=== PATIENT | female | born 1985 | race Caucasian/White ===

== ENCOUNTER 2016-08-05 19:06 | Emergency (ER) | payer OTHER ==
[~2016-08-05] VITALS: Ht 157.5 cm; Wt 128.0 kg
[~2016-08-05 19:06] MED LIST: ALPR0.5T PO; CITA40TA12 PO; FAMO-63 PO; KETO10TA PO; LAMO25TA5 PO; MAG355OR12 PO; METO50TA10 PO; ONDA4TAB10 PO; SUMA100T3 PO
[2016-08-05 19:28] VITALS: BP 121/93
[2016-08-05] MEDS ORDERED: HYDROcodone/APAP 5/325MG 1 TAB TABLET PO ONE (20:30)
[2016-08-05] MEDS ORDERED: PHENAZOPYRIDINE 200 MG TABLET. PO ONE (20:30)
[2016-08-05 20:43] LABS: BILIRUBIN,URINE NEG (NEG); CLARITY,URINE CLEAR; COLOR,URINE STRAW; GLUCOSE,URINE NEG (NEG)
[2016-08-05 20:44] LABS: AMORPHOUS SEDIMENT,UR PRESENT /HPF; BACTERIA,URINE 0 /HPF (0-FEW); NITRITE,URINE NEG (NEG); RBC,URINE 0 /HPF (0-2); SQUAMOUS EPITHELIAL CELL,UR OCC /LPF; UROBILINOGEN,URINE 0.2 mg/dL (0.2 mg/dL); WBC,URINE OCC /HPF (0-4)
--- NOTE | 2016-08-05 20:51 | ED.ADGEN ---
Past History Past Medical History: Anxiety, Depression, Hypertension Past Surgical History: Appendectomy, Hysterectomy, Tonsillectomy, Other Smoking: Less than 1pk/day Alcohol Use: None Drug Use: None Adult General Chief Complaint Chief Complaint pain with urination and having to urinate often HPI HPI Patient is a [31] year old female who presents with painful urination that started today. she states she has suprapubic pain and pressure in pelvic area when she stands. she has pain with urination and needing to urinate frequently but only urinating small amounts. she was at pool all weekend,. drinks lots of soda and little water. she is and denies vaginal discharge. no fever, no RLQ pain, no diarrhea Review of Systems Review of Systems Constitutional: Denies fever or chills [] Eyes: Denies change in visual acuity, redness, or eye pain [] HENT: Denies nasal congestion or sore throat [] Respiratory: Denies cough or shortness of breath [] Cardiovascular: No additional information not addressed in HPI [] GI: Denies abdominal pain, nausea, vomiting, bloody stools or diarrhea [] : Denies dysuria or hematuria [] Musculoskeletal: Denies back pain or joint pain [] Integument: Denies rash or skin lesions [] Neurologic: Denies headache, focal weakness or sensory changes [] Endocrine: Denies polyuria or polydipsia [] Current Medications Current Medications Current Medications Medications (Trade) Dose Ordered Sig/[facility] Start Time Stop Time Status Last Admin Dose Admin Acetaminophen/ Hydrocodone Bitart (Lortab 5/325) 1 tab 1X ONCE 08/05/16 20:30 08/05/16 20:33 DC 08/05/16 20:30 1 TAB Phenazopyridine HCl (Pyridium) 200 mg 1X ONCE 08/05/16 20:30 08/05/16 20:33 DC 08/05/16 20:30 200 MG Allergies Allergies Allergies Coded Allergies Type Severity Reaction Last Updated Verified Penicillins Allergy Severe Anaphylaxis 12/13/14 Yes Physical Exam Physical Exam Constitutional: Well developed, well nourished, no acute distress, non-toxic appearance. [] HENT: Normocephalic, atraumatic, bilateral external ears normal, oropharynx moist, no oral exudates, nose normal. [] Eyes: PERRLA, EOMI, conjunctiva normal, no discharge. [] Neck: Normal range of motion, no tenderness, supple, no stridor. [] Cardiovascular:Heart rate regular rhythm, no murmur [] Lungs & Thorax: Bilateral breath sounds clear to auscultation [] Abdomen: Bowel sounds normal, soft, suprapubic pain, no RLQ pain, no masses, no pulsatile masses. [] Skin: Warm, dry, no erythema, no rash. [] Back: No tenderness, no CVA tenderness. [] Extremities: No tenderness, no cyanosis, no clubbing, ROM intact, no edema. [] Neurologic: Alert and oriented X 3, normal motor function, normal sensory function, no focal deficits noted. [] Psychologic: Affect normal, judgement normal, mood normal. [] Current Patient Data Vital Signs Vital Signs Date Time Temp Pulse Resp B/P (MAP) Pulse Ox O2 Delivery O2 Flow Rate FiO2 08/05/16 19:28 98.4 87 20 97 Room Air Lab Results Laboratory Tests Test 08/05/16 19:23 Urine Collection Type Unknown Urine Color Straw Urine Clarity Clear Urine pH 8.0 Urine Specific [place] 1.015 Urine Protein Neg (NEG-TRACE) Urine Glucose (UA) Neg mg/dL (NEG) Urine Ketones (Stick) Neg mg/dL (NEG) Urine Blood Neg (NEG) Urine Nitrite Neg (NEG) Urine Bilirubin Neg (NEG) Urine Urobilinogen Dipstick 0.2 mg/dL (0.2 mg/dL) Urine Leukocyte Esterase Neg (NEG) Urine RBC 0 /HPF (0-2) Urine WBC Occ /HPF (0-4) Urine Squamous Epithelial Cells Occ /LPF Urine Amorphous Sediment Present /HPF Urine Bacteria 0 /HPF (0-FEW) EKG EKG [] Radiology/Procedures Radiology/Procedures [] Course & Med Decision Making Course & Med Decision Making Pertinent Labs and Imaging studies reviewed. (See chart for details) [] Final Impression Final Impression urethritis Problems: Dragon Disclaimer Dragon Disclaimer This electronic medical record was generated, in whole or in part, using a voice recognition dictation system. Departure Time of Disposition: 21:02 Disposition: 01 HOME, SELF-CARE Condition: STABLE Patient Instructions: Urethritis, Adult JAVIER LEONARD MD Aug 05, 2016 20:51
== END 2016-08-05 21:00 | disposition home or self-care (01) ==
LOC: ER 19:06
DX: N34.2 Other urethritis (principal); I10 Essential (primary) hypertension; F17.200 Nicotine dependence, unspecified, uncomplicated; Z88.0 Allergy status to penicillin
CPT/HCPCS: 81001; 99283

== ENCOUNTER 2016-10-30 18:27 | Emergency (ER) | payer OTHER ==
[~2016-10-30] VITALS: Ht 157.5 cm; Wt 119.3 kg
[2016-10-30 18:39] VITALS: BP 158/96
[2016-10-30] MEDS ORDERED: KETOROLAC 30 MG/ML VIAL. IV ONE (19:15)
--- NOTE | 2016-10-30 19:43 | EKG ---
[address] [address] Test Date: 2016-10-30 Test Time: 19:03:35 Pat Name: ROXANA RIVERA Department: Room: Gender: F Graphic Designer: : 1985 Requested By: HIEN DICKEY Order Number: [id number] Reading MD: Oliver Chavarria Measurements Intervals [place] Rate: 76 P: 20 SD: 144 QRS: 23 QRSD: 98 T: 52 QT: 412 QTc: 468 Interpretive Statements SINUS RHYTHM Electronically Signed On 10-31-2016 11:54:59 CDT by Oliver Chavarria
[2016-10-30 20:13] LABS: BASO # 0.1 x10^3/uL (0.0-0.2); BASO % 1 % (0-3); EOS # 0.6 x10^3/uL (0.0-0.7); EOS % 5 % (0-3); HEMATOCRIT 39.3 % (36.0-47.0); HEMOGLOBIN 13.6 g/dL (12.0-15.5); LYMPH # 4.7 x10^3/uL (1.0-4.8); LYMPH % 38 % (24-48); MEAN CORPUSCULAR HEMOGLOBIN 29 pg (25-35); MEAN CORPUSCULAR HGB CONC 35 g/dL (31-37); MEAN CORPUSCULAR VOLUME 85 fL (79-100); MONO # 0.9 x10^3/uL (0.0-1.1); MONO % 7 % (0-9); NEUT # 6.1 x10^3uL (1.8-7.7); NEUT % 49 % (31-73); PLATELET COUNT 283 x10^3/uL (140-400); RED BLOOD COUNT 4.63 x10^6/uL (3.50-5.40); RED CELL DISTRIBUTION WIDTH 13.1 % (11.5-14.5); WHITE BLOOD COUNT 12.4 x10^3/uL (4.0-11.0)
[2016-10-30 20:31] LABS: ALBUMIN 3.5 g/dL (3.4-5.0); ALBUMIN/GLOBULIN RATIO 0.9 (1.0-1.7); GFR 63.9; TOTAL BILIRUBIN 0.1 mg/dL (0.2-1.0); TOTAL PROTEIN 7.3 g/dL (6.4-8.2)
[2016-10-30 20:50] LABS: BACTERIA,URINE FEW /HPF (0-FEW); BILIRUBIN,URINE NEG (NEG); CLARITY,URINE CLEAR; COLOR,URINE YELLOW; GLUCOSE,URINE NEG (NEG); NITRITE,URINE NEG (NEG); RBC,URINE OCC /HPF (0-2); SQUAMOUS EPITHELIAL CELL,UR FEW /LPF; UROBILINOGEN,URINE 0.2 mg/dL (0.2 mg/dL); WBC,URINE OCC /HPF (0-4)
[2016-10-30] MEDS ORDERED: CYCL5TAB PO (22:07)
--- NOTE | 2016-10-30 22:07 | PHYS DOC ---
Past History Past Medical History: Hypertension Past Surgical History: Appendectomy, Cholecystectomy, Hysterectomy Smoking: Less than 1pk/day Alcohol Use: None Drug Use: None Adult General Chief Complaint Chief Complaint: ABDOMINAL PAIN HPI HPI Patient is a 31 year old female who presents with chest pain. The patient reports all day today she has had sharp stabbing pain to left chest under her left breast. Denies radiation of pain. Denies fevers/chills, cough, shortness of breath, nausea, vomiting, diarrhea, dysuria/hematuria, lower extremity pain/ swelling. Denies previous history of similar symptoms. She has history of HTN , cholecystectomy, appendectomy, hysterectomy. Denies recent travel/ immobilization, use of hormones. She is a current every day smoker. Review of Systems Review of Systems Constitutional: Denies fever or chills Eyes: Denies change in visual acuity HENT: Denies nasal congestion or sore throat Respiratory: Denies cough or shortness of breath Cardiovascular: Reports chest pain, denies edema GI: Denies abdominal pain, nausea, vomiting, bloody stools or diarrhea : Denies dysuria or hematuria Musculoskeletal: Denies back pain or joint pain Integument: Denies rash or skin lesions Neurologic: Denies headache, focal weakness or sensory changes Current Medications Current Medications Current Medications Medications (Trade) Dose Ordered Sig/[facility] Start Time Stop Time Status Last Admin Dose Admin Ketorolac Tromethamine (Toradol) 30 mg 1X ONCE 10/30/16 19:15 10/30/16 19:16 DC 10/30/16 20:02 30 MG Allergies Allergies Allergies Coded Allergies Type Severity Reaction Last Updated Verified Penicillins Allergy Severe Anaphylaxis 10/30/16 Yes Physical Exam Physical Exam Constitutional: obese, no acute distress, non-toxic appearance. HENT: Normocephalic, atraumatic, bilateral external ears normal, oropharynx moist, nose normal. Eyes: conjunctiva normal, no discharge. Neck: supple, no stridor. Cardiovascular: RRR, no murmurs, no edema. Lungs & Thorax: LCTAB, no wheezing, no respiratory distress. reproducible tenderness with palpation under her left breast. Abdomen: soft, tenderness under the left breast possibly mild tenderness in LUQ , no rebound/guarding, no masses or pulsatile masses, nondistended. Skin: Warm, dry, no erythema, no rash. Back: No CVA tenderness. Extremities: No tenderness, no edema. Neurologic: Alert and oriented X 3, no focal deficits noted. Psychologic: Affect normal, judgement normal, mood normal. Current Patient Data Vital Signs Vital Signs Date Time Temp Pulse Resp B/P (MAP) Pulse Ox O2 Delivery O2 Flow Rate FiO2 10/30/16 18:39 98.4 79 18 98 Room Air Lab Results Laboratory Tests Test 10/30/16 19:30 10/30/16 19:50 10/30/16 20:06 10/30/16 20:45 Urine Collection Type Unknown Urine Color Yellow Urine Clarity Clear Urine pH 5.5 Urine Specific [place] 1.010 Urine Protein Neg (NEG-TRACE) Urine Glucose (UA) Neg mg/dL (NEG) Urine Ketones (Stick) Neg mg/dL (NEG) Urine Blood Neg (NEG) Urine Nitrite Neg (NEG) Urine Bilirubin Neg (NEG) Urine Urobilinogen Dipstick 0.2 mg/dL (0.2 mg/dL) Urine Leukocyte Esterase Neg (NEG) Urine RBC Occ /HPF (0-2) Urine WBC Occ /HPF (0-4) Urine Squamous Epithelial Cells Few /LPF Urine Bacteria Few /HPF (0-FEW) White Blood Count 12.4 x10^3/uL (4.0-11.0) H Red Blood Count 4.63 x10^6/uL (3.50-5.40) Hemoglobin 13.6 g/dL (12.0-15.5) Hematocrit 39.3 % (36.0-47.0) Mean Corpuscular Volume 85 fL (79-100) Mean Corpuscular Hemoglobin 29 pg (25-35) Mean Corpuscular Hemoglobin Concent 35 g/dL (31-37) Red Cell Distribution Width 13.1 % (11.5-14.5) Platelet Count 283 x10^3/uL (140-400) Neutrophils (%) (Auto) 49 % (31-73) Lymphocytes (%) (Auto) 38 % (24-48) Monocytes (%) (Auto) 7 % (0-9) Eosinophils (%) (Auto) 5 % (0-3) H Basophils (%) (Auto) 1 % (0-3) Neutrophils # (Auto) 6.1 x10^3uL (1.8-7.7) Lymphocytes # (Auto) 4.7 x10^3/uL (1.0-4.8) Monocytes # (Auto) 0.9 x10^3/uL (0.0-1.1) Eosinophils # (Auto) 0.6 x10^3/uL (0.0-0.7) Basophils # (Auto) 0.1 x10^3/uL (0.0-0.2) Sodium Level 141 mmol/L (136-145) Potassium Level 3.0 mmol/L (3.5-5.1) L Chloride Level 102 mmol/L (98-107) Carbon Dioxide Level 29 mmol/L (21-32) Anion Gap 10 (6-14) Blood Urea Nitrogen 8 mg/dL (7-20) Creatinine 1.0 mg/dL (0.6-1.0) Estimated GFR (Cockcroft-Gault) 63.9 BUN/Creatinine Ratio 8 (6-20) Glucose Level 106 mg/dL (70-99) H Calcium Level 9.0 mg/dL (8.5-10.1) Total Bilirubin 0.1 mg/dL (0.2-1.0) L Aspartate Amino Transferase (AST) 35 U/L (15-37) Alanine Aminotransferase (ALT) 43 U/L (14-59) Alkaline Phosphatase 59 U/L (46-116) Troponin I Quantitative < 0.017 ng/mL (0-0.055) ZI-Ets-B-Type Natriuretic Peptide 190 pg/mL (0-124) H Total Protein 7.3 g/dL (6.4-8.2) Albumin 3.5 g/dL (3.4-5.0) Albumin/Globulin Ratio 0.9 (1.0-1.7) L Lipase 101 U/L (73-393) POC Urine HCG, Qualitative hcg negative (Negative) D-Dimer (Cally) 0.24 mg/L (0.00-0.50) EKG EKG Interpreted by me: Normal sinus rhythm rate 76, no acute ST or T wave changes, normal intervals, no ectopy.[] Radiology/Procedures Radiology/Procedures Chest x-ray, 2 views, interpreted by me: No cardiomegaly, no infiltrate, no pneumothorax, no acute process.[] Course & Med Decision Making Course & Med Decision Making Pertinent Labs and Imaging studies reviewed. (See chart for details) The patient presents with chest pain on exam possibly also abdominal pain. Vitals are stable. Provided pain medication. Low risk for ACS with atypical symptoms, PERC is 0. Obtained labs, EKG, chest x-ray. The emergency department was very busy and there was a significant delay in obtaining lab results. The patient felt better after treatment. No significant abnormality to explain her symptoms. May have musculoskeletal cause of symptoms. Recommend rest, heat, scheduled ibuprofen, flexeril as needed for muscle pain/spasm. Follow up with primary care physician in 2-3 days if not improving. Return to the emergency department for severe chest pain or shortness of breath, any otherwise worsening condition. Discharged home in stable condition. Dragon Disclaimer Dragon Disclaimer This chart was dictated in whole or in part using Voice Recognition software in a busy, high-work load, and often noisy Emergency Department environment. It may contain unintended and wholly unrecognized errors or omissions. Departure Departure: Impression: Primary Impression: Chest pain Disposition: HOME, SELF-CARE Condition: STABLE Referrals: BECCA BELLA DO (PCP) Patient Instructions: Chest Pain (Nonspecific), [id number] Additional Instructions: You were seen in the emergency department today for chest pain. Labs, EKG, chest x-ray did not show serious cause of your pain. This could be muscle pain. Please rest, drink fluids, take ibuprofen every 8 hours as needed for pain. Use Flexeril as needed to help with muscle spasm. Follow-up with primary care physician in 2-3 days. Return to the emergency department for severe shortness of breath or chest pain, any otherwise worsening condition. Scripts Cyclobenzaprine Hcl (CYCLOBENZAPRINE HCL) 5 Mg Tablet 1 TAB PO TID Y for MUSCLE SPASMS, #10 TAB Prov: HIEN DICKEY MD 10/30/16 Problem Qualifiers Primary Impression: Chest pain Chest pain type: unspecified Qualified Codes: R07.9 - Chest pain, unspecified HIEN DICKEY MD Oct 30, 2016 22:07
--- NOTE | 2016-10-31 08:52 | RAD ---
Chest, 2 views, 10/30/2016: History: Left chest pain Comparison is made to a study from 08/17/2015. The heart size and pulmonary vascularity are normal. No pulmonary infiltrates are seen. There is no evidence of pleural fluid. There is a mild right convexity thoracic scoliosis with mild scattered marginal spurs. IMPRESSION: No acute cardiopulmonary abnormality is detected.
== END 2016-10-30 22:20 | disposition home or self-care (01) ==
LOC: ER 18:27
DX: R07.89 Other chest pain (principal); I10 Essential (primary) hypertension; F17.210 Nicotine dependence, cigarettes, uncomplicated; Z88.0 Allergy status to penicillin
CPT/HCPCS: 36415; 71020; 80053; 81001; 81025; 83690; 83880; 84484; 85025; 85379; 93005; 96374; 99284; J1885

== ENCOUNTER 2017-02-25 11:18 | Emergency (ER) | payer OTHER ==
[~2017-02-25] VITALS: Ht 157.5 cm; Wt 127.9 kg
[~2017-02-25 11:18] MED LIST changes: +CYCL5TAB PO; -METO50TA10 PO; +METO50TA29 PO
[2017-02-25 11:42] VITALS: BP 134/78
--- NOTE | 2017-02-25 12:03 | PHYS DOC ---
Past History Past Medical History: Anxiety, Hypertension Past Surgical History: Appendectomy, Cholecystectomy, Hysterectomy Smoking: Less than 1pk/day Alcohol Use: None Drug Use: None Adult General Chief Complaint Chief Complaint: KNEE pain HPI HPI 31-year-old female presenting to the emergency department today with right knee pain. She has had pain for about 10 days. She reports mild swelling of the knee joint. She denies any redness of the knee joint any fevers at home. She denies any recent exposure to STDs. The pain in her knee is worse with walking. It is improved with rest. The pain is nonradiating mild and intermittent. She denies a history of gout. Patient denies any recent falls or traumatic injury. Review of systems is negative for chest pain shortness of breath fevers or chills. All other review of systems is negative unless otherwise noted in history of present illness. ED course: 31-year-old female presenting to the emergency department today with right knee pain. On arrival the patient is afebrile with mild high blood pressure. Otherwise saturating well on room air. On examination of the right knee the patient has a mild effusion without any erythema. Minimal pain with passive range of motion. Negative David's test. Negative Kev's test. Distally the patient is neurovascularly intact with normal motor and sensory function of the foot. Normal range of motion and nontender ankle. Normal range of motion of the hip. Patient is able to ambulate without difficulty in the emergency department. X-rays were obtained of the right knee which were unremarkable. I explained to the patient that the only way to rule out septic arthritis is arthrocentesis which can be therapeutic as well. The patient demonstrates understanding and has medical decision making capacity. She understands that septic arthritis can be a disabling and debilitating disease risking loss of limb and can also be life-threatening. She does not desire for arthrocentesis to be performed. Patient was then dced to follow-up with her primary care physician in 2-3 days. Patient could return to the emergency department any time if she wanted to perform the procedure for diagnostic rule out. The patient was then discharged home in stable condition to follow up with their primary care physician over the next 2-3 days. They were to return if their symptoms worsened or if they were concerned for any reason. [id number] discharge instructions and return precautions were given. Patient's questions were answered to their satisfaction. Patient is comfortable with plan. Review of Systems Review of Systems SEE ABOVE. Allergies Allergies Allergies Coded Allergies Type Severity Reaction Last Updated Verified Penicillins Allergy Severe Anaphylaxis 10/30/16 Yes Physical Exam Physical Exam SEE ABOVE Constitutional: Well developed, well nourished, no acute distress, non-toxic appearance. [] HENT: Normocephalic, atraumatic, bilateral external ears normal, oropharynx moist, no oral exudates, nose normal. [] Eyes: PERRLA, EOMI, conjunctiva normal, no discharge. [] Neck: Normal range of motion, no tenderness, supple, no stridor. [] Cardiovascular:Heart rate regular rhythm, no murmur [] Lungs & Thorax: Bilateral breath sounds clear to auscultation [] Abdomen: Bowel sounds normal, soft, no tenderness, no masses, no pulsatile masses. [] Skin: Warm, dry, no erythema, no rash. [] Back: No tenderness, no CVA tenderness. [] Extremities: SEE ABOVE Neurologic: Alert and oriented X 3, normal motor function, normal sensory function, no focal deficits noted. [] Psychologic: Affect normal, judgement normal, mood normal. [] Current Patient Data Vital Signs Vital Signs Date Time Temp Pulse Resp B/P (MAP) Pulse Ox O2 Delivery O2 Flow Rate FiO2 02/25/17 11:42 98.2 94 18 98 Room Air EKG EKG [] Radiology/Procedures Radiology/Procedures [] Course & Med Decision Making Course & Med Decision Making Pertinent Labs and Imaging studies reviewed. (See chart for details) [] Dragon Disclaimer Dragon Disclaimer This electronic medical record was generated, in whole or in part, using a voice recognition dictation system. Departure Departure: Impression: Primary Impression: Right knee pain Disposition: HOME, SELF-CARE Condition: STABLE Referrals: BECCA BELLA DO (PCP) Patient Instructions: Knee Pain, [id number] Additional Instructions: Thank you for allowing us to participate in your care today. Followup with your primary care physician in 3 days if your symptoms do not improve. Call your Primary Doctor tomorrow and inform them of your visit today. If you do not have a primary care provider you can ask for a list of our primary care providers. Return to the emergency department you have any new or concerning findings. This should be evaluated by the primary care physician and any necessary consulting services for continued management within a few days after discharge. Return to emergency room if you have any new or concerning symptoms including but not limited to fever, chills, nausea, vomiting, intractable pain, any new rashes, chest pain, shortness of air, uncontrolled bleeding, difficulty breathing, and/or vision loss. You may have been prescribed medication that can change in your level of thinking and ability to operate machinery. These medications include hydrocodone and Ativan. Also, Benadryl has been known to do this as well. Be sure to check with your pharmacist and ask if the medications you've prescribed can affect your level of consciousness. I recommend not operating heavy machinery or driving while on medication such as these. CECILIA FREDERICK MD Feb 25, 2017 12:03
--- NOTE | 2017-02-25 12:28 | RAD ---
KNEE RIGHT 3V Clinical Indication: Fall, right knee pain Comparison: Knee radiographs dated 03/14/2016 Findings: No acute fracture or malalignment. No suprapatellar joint effusion. The joint spaces are maintained. Bony mineralization is normal for the patient's age. No significant soft tissue abnormality. No radiopaque foreign body. IMPRESSION: No acute fracture or malalignment.
[2017-02-25] MEDS ORDERED: IBUPROFEN 400 MG TABLET. PO ONE (12:30)
== END 2017-02-25 12:48 | disposition home or self-care (01) ==
LOC: ER 11:18
DX: M25.561 Pain in right knee (principal); I10 Essential (primary) hypertension; F41.9 Anxiety disorder, unspecified; F17.200 Nicotine dependence, unspecified, uncomplicated; Z88.0 Allergy status to penicillin
CPT/HCPCS: 73562; 99284

== ENCOUNTER 2017-06-29 07:17 | Emergency (ER) | payer OTHER ==
[2017-06-29 07:30] VITALS: BP 127/69
--- NOTE | 2017-06-29 10:23 | ED.ADGEN ---
Past History Past Medical History: Anxiety, Depression, Hypertension Past Surgical History: Appendectomy, Cholecystectomy, Hysterectomy Smoking: Less than 1pk/day Alcohol Use: None Drug Use: None Adult General Chief Complaint Chief Complaint Scalp tenderness [facility] HPI Patient is a 32 year old female who wants with painful tender nodule behind left ear just above mastoid. Patient denies injury. But is concerned she may have had a spider bite. No redness to the area. Simple subcutaneous nodule noted exam with minimal tenderness. No other identifiable complaint. No medications or therapy sticking prior to ED [] Review of Systems Review of Systems ROS as per HPI. All other systems were reviewed and found to be within normal limits, except as documented in this note. Allergies Allergies Allergies Coded Allergies Type Severity Reaction Last Updated Verified Penicillins Allergy Severe Anaphylaxis 10/30/16 Yes Physical Exam Physical Exam Constitutional: Well developed, well nourished, no acute distress, non-toxic appearance. [] HENT: Normocephalic, atraumatic, palpable subcutaneous nodule above left mastoid , no erythema, bruising or obvious puncture wound, bilateral external ears normal, oropharynx moist, no oral exudates, nose normal. [] Eyes: PERRLA, EOMI, conjunctiva normal, no discharge. [] Psychologic: Affect, anxious[] Current Patient Data Vital Signs Vital Signs Date Time Temp Pulse Resp B/P (MAP) Pulse Ox O2 Delivery O2 Flow Rate FiO2 06/29/17 07:30 98.3 77 18 97 Room Air EKG EKG [] Radiology/Procedures Radiology/Procedures [] Course & Med Decision Making Course & Med Decision Making Pertinent Labs and Imaging studies reviewed. (See chart for details) [Minor pain skin complaint. Recommend PCP follow up as needed. ] Final Impression Final Impression [1. Subcutaneous nodule] Problems: Dragon Disclaimer Dragon Disclaimer This electronic medical record was generated, in whole or in part, using a voice recognition dictation system. MOIZ BARRAGAN DO June 29, 2017 10:23
== END 2017-06-29 07:44 | disposition home or self-care (01) ==
LOC: ER 07:17
DX: R22.0 Localized swelling, mass and lump, head (principal); H93.8X2 Other specified disorders of left ear; I10 Essential (primary) hypertension; F41.9 Anxiety disorder, unspecified; F32.9 Major depressive disorder, single episode, unspecified; F17.200 Nicotine dependence, unspecified, uncomplicated; Z88.0 Allergy status to penicillin
CPT/HCPCS: 99281

== ENCOUNTER 2018-10-08 17:50 | Inpatient (IN) | payer OTHER ==
[~2018-10-08] VITALS: Ht 157.5 cm; Wt 128.0 kg
[2018-10-08] MEDS ORDERED: IV RINGERS SOLUTION,LACTATED 1,000 ML IV SCH (18:23)
[2018-10-08] MEDS ORDERED: ASPIRIN 81 MG TAB.CHEW PO ONE (18:30)
--- NOTE | 2018-10-08 18:48 | RAD ---
PA chest and AP upright supine abdomen x-rays HISTORY: Abdominal discomfort, right upper quadrant pain, nausea and vomiting. FINDINGS: Heart and mediastinum unremarkable. No point opacities. No pleural effusions. No pneumoperitoneum. Cholecystectomy clips. No dilated bowel loops or abnormal air-fluid levels. Mild volume of stool within the colon. Pelvic calcifications most likely phleboliths although imaging features are several of these are nonspecific. 1 cm sclerotic density left iliac crest presumably a bone island. IMPRESSION: No acute process. No evidence of bowel obstruction. Electronically signed by: Elliot Parrish MD (10/08/2018 6:46 PM) [facility]
--- NOTE | 2018-10-08 19:26 | ED.ADGEN ---
Past History Past Medical History: Anxiety, Depression, Hypertension Past Surgical History: Appendectomy, Cholecystectomy, Hysterectomy Smoking: Less than 1pk/day Alcohol Use: None Drug Use: None Adult General Chief Complaint Chief Complaint " It all started about 45 min. ago.. here in the center of epigastric and chest.. pain or discomfort.... It can't be my gall bladder because I ve had it out....." HPI HPI Patient is a 33 year old female who presents with above hx and complaints of epigastric and chest discomfort. Discomfort has been localized to the sternum and epigastric area, some mild right upper quadrant tenderness. Patient denies any intake of bad food. No history of dark or tarry stools. No history of trauma. Eyes reveal contacts. There is family history of cardiac disease with father who of an OR at age 54. Patient has a history of hypertension. Patient does smoke. Patient has had elevated cholesterol. Patient states pain came on while being at [employer]. Described as sharp and tightness with associated shortness of breath. Review of Systems Review of Systems Constitutional: Denies fever or chills [] Eyes: Denies change in visual acuity, redness, or eye pain [] HENT: Denies nasal congestion or sore throat [] Respiratory: Denies cough or shortness of breath [] Cardiovascular: No additional information not addressed in HPI [] GI: Complaints of epigastric abdominal pain, nausea,, Denies vomiting, bloody stools or diarrhea [] : Denies dysuria or hematuria [] Musculoskeletal: Denies back pain or joint pain [] Integument: Denies rash or skin lesions [] Neurologic: Denies headache, focal weakness or sensory changes [] Endocrine: Denies polyuria or polydipsia [] All other systems were reviewed and found to be within normal limits, except as documented in this note. Family History Family History Father of OR at age 54 Current Medications Current Medications Current Medications Medications (Trade) Dose Ordered Sig/Harrison Start Time Stop Time Status Last Admin Dose Admin Aspirin (Children'S Aspirin) 324 mg 1X ONCE 10/08/18 18:30 10/08/18 18:31 DC 10/08/18 18:22 324 MG Lactated Ringer's 1,000 ml @ 100 mls/hr Q10H 10/08/18 18:23 10/09/18 04:22 10/08/18 19:01 100 MLS/HR Allergies Allergies Allergies Coded Allergies Type Severity Reaction Last Updated Verified Penicillins Allergy Severe Anaphylaxis 10/30/16 Yes Physical Exam Physical Exam Constitutional: Moderately acute distress, non-toxic appearance. [] HENT: Normocephalic, atraumatic, bilateral external ears normal, oropharynx moist, no oral exudates, nose normal. [] Eyes: PERRLA, EOMI, conjunctiva normal, no discharge. [] Neck: Normal range of motion, no tenderness, supple, no stridor. [] Cardiovascular:Heart rate regular rhythm, no murmur [] Lungs & Thorax: Bilateral breath sounds clear to auscultation [] Abdomen: Bowel sounds normal, soft, gastric and right upper quadrant tenderness, no masses, no pulsatile masses. [] Obese. Old surgery scars. Skin: Warm, dry, no erythema, no rash. [] Back: No tenderness, no CVA tenderness. [] Extremities: No tenderness, no cyanosis, no clubbing, ROM intact, no edema. [] Cording appreciated Neurologic: Alert and oriented X 3, normal motor function, normal sensory function, no focal deficits noted. [] Psychologic: Affect anxious, judgement normal, mood normal. [] Current Patient Data Vital Signs Vital Signs Date Time Temp Pulse Resp B/P (MAP) Pulse Ox O2 Delivery O2 Flow Rate FiO2 10/08/18 18:56 69 20 132/78 (96) 97 Room Air 10/08/18 17:55 98.0 EKG EKG I interpretation EKG shows a sinus rhythm at 76 bpm no acute morphology[] Radiology/Procedures Radiology/Procedures [][address] [address] IMAGING REPORT Signed PATIENT: ROXANA RIVERA ACCOUNT: [id number] : 1985 LOCATION: ER AGE: 33 SEX: F EXAM STATUS: REG ER ORD. PHYSICIAN: ESVIN AMOR MD REASON: abd. discomfort, ruq pain, nausea/vomiting osnet today PROCEDURE: ACUTE ABDOMEN SERIES PA chest and AP upright supine abdomen x-rays HISTORY: Abdominal discomfort, right upper quadrant pain, nausea and vomiting. FINDINGS: Heart and mediastinum unremarkable. No point opacities. No pleural effusions. No pneumoperitoneum. Cholecystectomy clips. No dilated bowel loops or abnormal air-fluid levels. Mild volume of stool within the colon. Pelvic calcifications most likely phleboliths although imaging features are several of these are nonspecific. 1 cm sclerotic density left iliac crest presumably a bone island. IMPRESSION: No acute process. No evidence of bowel obstruction. Electronically signed by: Keena Parrish MD (10/08/2018 6:46 PM) [facility] [place] DICTATED AND SIGNED BY: KEENA PARRISH MD DATE: 10/08/18 184 CC: ESVIN AMOR MD; BECCA BELLA DO ~ Course & Med Decision Making Course & Med Decision Making Pertinent Labs and Imaging studies reviewed. (See chart for details) Heart score 3- 4 Discussed presentation, testing and tx. plan with Dr. Hernández- will admit for further eval and tx. [] Final Impression Final Impression 1. Chest Pain 2. Epigastric Pain[] 3. Hypokalemia 3.4 4. Elevated Creat. 1.1 5. Leukocytosis 12.1 6. Hypomagnesium 1.7 Dragon Disclaimer Dragon Disclaimer This electronic medical record was generated, in whole or in part, using a voice recognition dictation system. Dragon Disclaimer This chart was dictated in whole or in part using Voice Recognition software in a busy, high-work load, and often noisy Emergency Department environment. It may contain unintended and wholly unrecognized errors or omissions. Dragon Disclaimer This chart was dictated in whole or in part using Voice Recognition software in a busy, high-work load, and often noisy Emergency Department environment. It may contain unintended and wholly unrecognized errors or omissions. ESVIN AMOR MD Oct 08, 2018 19:26
[2018-10-08 19:38] LABS: BASO # 0.1 x10^3/uL (0.0-0.2); BASO % 1 % (0-3); EOS # 0.6 x10^3/uL (0.0-0.7); EOS % 5 % (0-3); HEMATOCRIT 39.1 % (36.0-47.0); HEMOGLOBIN 13.4 g/dL (12.0-15.5); LYMPH # 4.5 x10^3/uL (1.0-4.8); LYMPH % 37 % (24-48); MEAN CORPUSCULAR HEMOGLOBIN 29 pg (25-35); MEAN CORPUSCULAR HGB CONC 34 g/dL (31-37); MEAN CORPUSCULAR VOLUME 85 fL (79-100); MONO # 0.9 x10^3/uL (0.0-1.1); MONO % 8 % (0-9); NEUT % 50 % (31-73); PLATELET COUNT 329 x10^3/uL (140-400); RED BLOOD COUNT 4.59 x10^6/uL (3.50-5.40); RED CELL DISTRIBUTION WIDTH 12.8 % (11.5-14.5); WHITE BLOOD COUNT 12.1 x10^3/uL (4.0-11.0)
[2018-10-08 19:43] LABS: BACTERIA,URINE FEW /HPF (0-FEW); BILIRUBIN,URINE NEG (NEG); CLARITY,URINE HAZY; COLOR,URINE YELLOW; GLUCOSE,URINE NEG (NEG); NITRITE,URINE NEG (NEG); RBC,URINE 0 /HPF (0-2); SQUAMOUS EPITHELIAL CELL,UR FEW /LPF; UROBILINOGEN,URINE 0.2 mg/dL (0.2 mg/dL); WBC,URINE OCC /HPF (0-4)
[2018-10-08] MEDS ORDERED: FAMOTIDINE 20 MG/2 ML VIAL IVP ONE (19:45)
[2018-10-08 19:57] LABS: ALBUMIN 3.5 g/dL (3.4-5.0); CALCIUM 9.8 mg/dL (8.5-10.1); CREATININE 1.1 mg/dL (0.6-1.0); DIRECT BILIRUBIN 0.1 mg/dL (0.0-0.2); GFR 56.5; MAGNESIUM 1.7 mg/dL (1.8-2.4); POTASSIUM 3.4 mmol/L (3.5-5.1); TOTAL BILIRUBIN 0.1 mg/dL (0.2-1.0); TOTAL PROTEIN 7.2 g/dL (6.4-8.2)
[2018-10-08] MEDS: IV RINGERS SOLUTION,LACTATED 1,000 ML IV SCH (21:15)
[2018-10-08] MEDS ORDERED: ONDANSETRON PF 4 MG/2 ML VIAL. IV PRN (21:15)
[2018-10-08] MEDS ORDERED: MORPHINE SULFATE 2 MG/ML DISP.SYRIN. IV PRN (21:15)
[2018-10-08] MEDS ORDERED: MAGNESIUM SULFATE 2GM 50 ML IV STA (21:40)
[2018-10-08] MEDS ORDERED: POTASSIUM CHLORIDE 20 MEQ TABLET.ER. PO ONE (21:45)
[2018-10-08] MEDS ORDERED: MORPHINE SULFATE 10 MG/ML SYRINGE. ONE (23:47)
[2018-10-09] MEDS ORDERED: ONDANSETRON PF 4 MG/2 ML VIAL. IV ONE
[2018-10-09] MEDS ORDERED: MORPHINE SULFATE 10 MG/ML SYRINGE. SQ ONE
[2018-10-09] MEDS: NITROGLYCERIN OINT 1 GM PACKET. TP SCH ×2 (00:04→08:43)
[2018-10-09] MEDS: IV RINGERS SOLUTION,LACTATED 1,000 ML IV SCH ×4 (02:15→12:15)
[2018-10-09 04:13] VITALS: BP 110/71
[2018-10-09] MEDS: ACETAMINOPHEN 325 MG TABLET PO PRN ×2 (04:48→12:28)
[2018-10-09] MEDS ORDERED: HYDR-2145 PO (05:43)
[2018-10-09] MEDS ORDERED: TRAZ-86 PO (05:43)
[2018-10-09] MEDS ORDERED: CETI10TA16 PO (05:43)
[2018-10-09 06:17] LABS: BASO # 0.1 x10^3/uL (0.0-0.2); BASO % 1 % (0-3); EOS # 0.6 x10^3/uL (0.0-0.7); EOS % 6 % (0-3); HEMATOCRIT 36.4 % (36.0-47.0); HEMOGLOBIN 12.6 g/dL (12.0-15.5); LYMPH % 40 % (24-48); MEAN CORPUSCULAR HEMOGLOBIN 30 pg (25-35); MEAN CORPUSCULAR HGB CONC 35 g/dL (31-37); MEAN CORPUSCULAR VOLUME 86 fL (79-100); MONO # 0.8 x10^3/uL (0.0-1.1); MONO % 8 % (0-9); NEUT # 4.6 x10^3uL (1.8-7.7); NEUT % 46 % (31-73); PLATELET COUNT 325 x10^3/uL (140-400); RED BLOOD COUNT 4.26 x10^6/uL (3.50-5.40); RED CELL DISTRIBUTION WIDTH 13.2 % (11.5-14.5)
[2018-10-09 06:18] VITALS: BP 108/69
[2018-10-09 06:29] LABS: CALCIUM 8.7 mg/dL (8.5-10.1); GFR 63.1; POTASSIUM 3.9 mmol/L (3.5-5.1)
--- NOTE | 2018-10-09 06:35 | EKG ---
[address] [address] Test Date: 2018-10-08 Test Time: 18:00:31 Pat Name: ROXANA RIVERA Department: Room: Gender: F [employer]: YULY : 1985 Requested By: ESVIN AMOR Order Number: [id number] Reading MD: Measurements Intervals [place] Rate: 76 P: -31 MS: 146 QRS: 14 QRSD: 100 T: 35 QT: 386 QTc: 439 Interpretive Statements SINUS RHYTHM NORMAL ECG RI6.01 No previous ECG available for comparison
[2018-10-09] MEDS ORDERED: ASPIRIN 81 MG TAB.CHEW PO SCH (08:00)
--- NOTE | 2018-10-09 08:16 | PDOC2 ---
CARDIAC CONSULT DATE OF CONSULT Date Of Consult DATE: 10/09/18 TIME: 08:12 REASON FOR CONSULT Reason for Consult Chest pain Hypertension Elevated lipids REFERRING PHYSICIAN Referring Physician Dr. London SOURCE Source: Chart review, Patient HPI History of Present Illness This is a 33 yo female who presented secondary to right sided abdominal pain. Reports pain began around 2 pm. She had just finished eating lunch and was about to get into the pool. Describes as stabbing in nature. Pain was so intense that she was unable to take a deep breath and felt short of air in her central chest. When asked specifically about chest pain, patient states "I think it got blown way out of proportion". Denies any dizziness, diaphoresis, or palpitations. [place] slightly nauseated. No recent WRIGHT, chest pain with exertion, or recent fevers/illness. PAST MEDICAL HISTORY Cardiovascular: HTN, hyperipidemia Psych: Anxiety, Depression Musculoskeletal: Osteoarthritis PAST SURGICAL HISTORY Past Surgical History: Appendectomy, Cholecystectomy, Hysterectomy FAMILY HISTORY Family History: Coronary Artery Disease (father ) SOCIAL HISTORY Smoke: 1 pack per day ALCOHOL: none Drugs: None Lives: with Family CURRENT MEDICATIONS Current Medications Current Medications Aspirin (Children'S Aspirin) 324 mg 1X ONCE PO Last administered on 10/08/18at 18:22; Start 10/08/18 at 18:30; Stop 10/08/18 at 18:31; Status DC Lactated Ringer's 1,000 ml @ 100 mls/hr Q10H IV Last administered on 10/08/18at 19:01; Start 10/08/18 at 18:23; Stop 10/09/18 at 04:22; Status DC Famotidine (Pepcid Vial) 20 mg 1X ONCE IVP Last administered on 10/08/18at 19:50; Start 10/08/18 at 19:45; Stop 10/08/18 at 19:46; Status DC Ondansetron HCl (Zofran) 4 mg PRN Q4HRS PRN IV NAUSEA/VOMITING Last administered on 10/08/18at 23:55; Start 10/08/18 at 21:15; Stop 10/09/18 at 21:14 Morphine Sulfate (Morphine 2mg Syringe) 2 mg PRN Q2HR PRN IV PAIN Last administered on 10/08/18at 21:33; Start 10/08/18 at 21:15; Stop 10/09/18 at 21:14 Nitroglycerin (Nitro-Bid Oint) 0.5 inch TID TP Last administered on 10/09/18at 00:04; Start 10/09/18 at 00:15 Aspirin (Children'S Aspirin) 81 mg DAILYWBKFT PO ; Start 10/09/18 at 08:00 Famotidine (Pepcid) 20 mg BID PO ; Start 10/09/18 at 09:00 Magnesium Sulfate 50 ml @ 25 mls/hr 1X STAT IV Last administered on 10/08/18at 23:55; Start 10/08/18 at 21:40; Stop 10/08/18 at 23:39; Status DC Potassium Chloride (Klor-Con) 40 meq 1X ONCE PO Last administered on 10/08/18at 23:55; Start 10/08/18 at 21:45; Stop 10/08/18 at 21:46; Status DC Lactated Ringer's 1,000 ml @ 200 mls/hr Q5H IV Last administered on 10/09/18at 04:48; Start 10/08/18 at 21:15 Morphine Sulfate (Morphine 10mg Syringe) 10 mg 1X ONCE SQ Last administered on 10/08/18at 23:55; Start 10/09/18 at 00:00; Stop 10/09/18 at 00:01; Status DC Ondansetron HCl (Zofran) 8 mg 1X ONCE IV ; Start 10/09/18 at 00:00; Stop 10/09/18 at 00:01; Status DC Lorazepam (Ativan Inj) 2 mg 1X ONCE IV Last administered on 10/09/18at 00:00; Start 10/09/18 at 00:00; Stop 10/09/18 at 00:01; Status DC Morphine Sulfate (Morphine 10mg Syringe) 10 mg STK-MED ONCE .ROUTE ; Start 10/08/18 at 23:47; Stop 10/08/18 at 23:48; Status DC Acetaminophen (Tylenol) 650 mg PRN Q6HRS PRN PO PAIN / TEMP Last administered on 10/09/18at 04:48; Start 10/09/18 at 04:30 Active Scripts Active Zofran Odt (Ondansetron) 4 Mg Tab.rapdis 4 Mg PO QIDPRN PRN Reported Cetirizine Hcl 10 Mg Tablet 10 Mg PO DAILY Hydrochlorothiazide Tablet (Hydrochlorothiazide) 25 Mg Tablet 25 Mg PO DAILY Trazodone Hcl 100 Mg Tablet 100 Mg PO QHS Celexa (Citalopram Hydrobromide) 40 Mg Tablet 40 Mg PO DAILY Lamictal (Lamotrigine) 25 Mg Tablet 25 Mg PO BID Metoprolol Succinate ( Xl ) (Metoprolol Succinate) 50 Mg Tab.er.24h 50 Mg PO DAILY ALLERGIES Allergies: Coded Allergies: Penicillins (Verified Allergy, Severe, Anaphylaxis, 10/30/16) ROS Review of Systems 14 point ROS conducted with pertinent positives noted above in HPI. PHYSICAL EXAM General: Alert, Oriented X3, Cooperative, No acute distress HEENT: Atraumatic, Mucous membr. moist/pink Lungs: Clear to auscultation, Normal air movement Heart: Regular rate, Normal S1, Normal S2, No murmurs Abdomen: Soft, Other (right sided tenderness ) Extremities: No edema, Normal pulses Skin: No breakdown Neuro: Normal speech, Sensation intact Psych/Mental Status: Mental status NL, Mood NL MUSCULOSKELETAL: Osteoarthritic changes both hands VITALS Vital Signs Vital Signs Date Time Temp Pulse Resp B/P (MAP) Pulse Ox O2 Delivery O2 Flow Rate FiO2 10/09/18 06:18 98.0 71 20 108/69 (82) 97 Room Air LABS LABS Laboratory Tests Test 10/08/18 19:04 10/08/18 19:11 10/09/18 06:02 White Blood Count 12.1 x10^3/uL (4.0-11.0) 10.0 x10^3/uL (4.0-11.0) Red Blood Count 4.59 x10^6/uL (3.50-5.40) 4.26 x10^6/uL (3.50-5.40) Hemoglobin 13.4 g/dL (12.0-15.5) 12.6 g/dL (12.0-15.5) Hematocrit 39.1 % (36.0-47.0) 36.4 % (36.0-47.0) Mean Corpuscular Volume 85 fL (79-100) 86 fL (79-100) Mean Corpuscular Hemoglobin 29 pg (25-35) 30 pg (25-35) Mean Corpuscular Hemoglobin Concent 34 g/dL (31-37) 35 g/dL (31-37) Red Cell Distribution Width 12.8 % (11.5-14.5) 13.2 % (11.5-14.5) Platelet Count 329 x10^3/uL (140-400) 325 x10^3/uL (140-400) Neutrophils (%) (Auto) 50 % (31-73) 46 % (31-73) Lymphocytes (%) (Auto) 37 % (24-48) 40 % (24-48) Monocytes (%) (Auto) 8 % (0-9) 8 % (0-9) Eosinophils (%) (Auto) 5 % (0-3) 6 % (0-3) Basophils (%) (Auto) 1 % (0-3) 1 % (0-3) Neutrophils # (Auto) 6.0 x10^3uL (1.8-7.7) 4.6 x10^3uL (1.8-7.7) Lymphocytes # (Auto) 4.5 x10^3/uL (1.0-4.8) 4.0 x10^3/uL (1.0-4.8) Monocytes # (Auto) 0.9 x10^3/uL (0.0-1.1) 0.8 x10^3/uL (0.0-1.1) Eosinophils # (Auto) 0.6 x10^3/uL (0.0-0.7) 0.6 x10^3/uL (0.0-0.7) Basophils # (Auto) 0.1 x10^3/uL (0.0-0.2) 0.1 x10^3/uL (0.0-0.2) Prothrombin Time 9.7 SEC (9.4-11.4) Prothromb Time International Ratio 0.9 (0.9-1.1) Activated Partial Thromboplast Time 25 SEC (23-33) D-Dimer (Calyl) 0.26 mg/L (0.00-0.50) Sodium Level 138 mmol/L (136-145) 139 mmol/L (136-145) Potassium Level 3.4 mmol/L (3.5-5.1) 3.9 mmol/L (3.5-5.1) Chloride Level 101 mmol/L (98-107) 103 mmol/L (98-107) Carbon Dioxide Level 29 mmol/L (21-32) 29 mmol/L (21-32) Anion Gap 8 (6-14) 7 (6-14) Blood Urea Nitrogen 14 mg/dL (7-20) 12 mg/dL (7-20) Creatinine 1.1 mg/dL (0.6-1.0) 1.0 mg/dL (0.6-1.0) Estimated GFR (Cockcroft-Gault) 56.5 63.1 Glucose Level 96 mg/dL (70-99) 105 mg/dL (70-99) Calcium Level 9.8 mg/dL (8.5-10.1) 8.7 mg/dL (8.5-10.1) Magnesium Level 1.7 mg/dL (1.8-2.4) Total Bilirubin 0.1 mg/dL (0.2-1.0) Direct Bilirubin 0.1 mg/dL (0.0-0.2) Aspartate Amino Transf (AST/SGOT) 34 U/L (15-37) Alanine Aminotransferase (ALT/SGPT) 40 U/L (14-59) Alkaline Phosphatase 47 U/L (46-116) Creatine Kinase 328 U/L (26-192) Troponin I Quantitative < 0.017 ng/mL (0-0.055) < 0.017 ng/mL (0-0.055) DX-Fjl-U-Type Natriuretic Peptide 297 pg/mL (0-124) Total Protein 7.2 g/dL (6.4-8.2) Albumin 3.5 g/dL (3.4-5.0) Amylase Level 30 U/L (25-115) Lipase 83 U/L (73-393) Urine Collection Type Unknown Urine Color Yellow Urine Clarity Hazy Urine pH 6.0 Urine Specific [place] 1.020 Urine Protein Neg (NEG-TRACE) Urine Glucose (UA) Neg mg/dL (NEG) Urine Ketones (Stick) Neg mg/dL (NEG) Urine Blood Neg (NEG) Urine Nitrite Neg (NEG) Urine Bilirubin Neg (NEG) Urine Urobilinogen Dipstick 0.2 mg/dL (0.2 mg/dL) Urine Leukocyte Esterase Neg (NEG) Urine RBC 0 /HPF (0-2) Urine WBC Occ /HPF (0-4) Urine Squamous Epithelial Cells Few /LPF Urine Bacteria Few /HPF (0-FEW) Urine Mucus Slight /LPF ASSESSMENT/PLAN Assessment/Plan 1. Right-side abdominal pain. no acute findings per acute abdominal series. 2. Chest pain, atypical. Trop negative x2. AMI ruled out. EKG without significant acute changes 3. Hypertension; controlled 4. Hyperlipidemia 5. Hypokalemia/hypomagnesemia; replaced 6. Obesity 7. Tobaccoism; discussed/encouraged cessation Recommendations ASA Will obtain echo to assess LV systolic function based upon risk factors. Lipid panel- statin if indicated Resume home antiHTN therapy If echo WNL, may discharge from a CV standpoint Risk factor modification Weight loss. ARY ARRIETA APRN Oct 09, 2018 08:16
[2018-10-09] MEDS ORDERED: FAMOTIDINE 20 MG TABLET PO SCH (09:00)
[2018-10-09] MEDS ORDERED: METOPROLOL SUCC 24HR ER 50 MG TAB.ER.24H. PO SCH (09:00)
[2018-10-09] MEDS ORDERED: CITALOPRAM 20 MG TABLET. PO SCH (09:00)
[2018-10-09] MEDS ORDERED: CETIRIZINE HCL 10 MG TABLET PO SCH (09:00)
[2018-10-09 11:48] VITALS: BP 127/84
--- NOTE | 2018-10-09 15:46 | CARD ---
MR#: [id number] Date of Study: 10/09/2018 Ordering Physician: CHELY SAMUELS, Referring Physician: Ken JHAVERI: Rachel Pringle RDCS APPROVED REPORT EXAM: Two-dimensional and M-mode echocardiogram with Doppler and color Doppler. Other Information Quality : Good INDICATION Chest Pain 2D DIMENSIONS RVDd2.5 (2.9-3.5cm)Left Atrium(2D)3.9 (1.6-4.0cm) IVSd0.8 (0.7-1.1cm)Aortic Root(2D)3.1 (2.0-3.7cm) LVDd5.3 (3.9-5.9cm)PWd0.9 (0.7-1.1cm) LVDs3.7 (2.5-4.0cm)FS (%) 29.3 % SV75.0 mlLVEF(%)55.7 (>50%) Aortic Valve AoV Peak Domingo.131.6cm/sAoV VTI26.4cm AO Peak GR.6.9mmHgAO Mean GR.4mmHg BJORN (VTI)3.25cm2 Mitral Valve MV E Zjmsooxz638.5cm/sMV DECEL [id number] MV A Jtayxxvx10.3cm/sE/A Ratio1.3 LEFT VENTRICLE The left ventricle is normal size. There is normal left ventricular wall thickness. The left ventricu lar systolic function is normal. The Ejection Fraction is 55-60%. There is normal LV segmental wall m otion. The left ventricular diastolic function and filling is normal for age. RIGHT VENTRICLE The right ventricle is normal size. The right ventricular systolic function is normal. ATRIA The left atrium size is normal. The right atrium size is normal. The interatrial septum is intact wit h no evidence for an atrial septal defect or patent foramen ovale as noted on 2-D or Doppler imaging. AORTIC VALVE The aortic valve is not well visualized but appears to be functioning normally by Doppler interrogati on. Doppler and Color Flow revealed no significant aortic regurgitation. There is no significant aort ic valvular stenosis. MITRAL VALVE The mitral valve is calcified but opens well. There is no evidence of mitral valve prolapse. There is no mitral valve stenosis. Doppler and Color-flow revealed trace mitral regurgitation. TRICUSPID VALVE The tricuspid valve is normal in structure and function. Doppler and Color Flow revealed no tricuspid valve regurgitation noted. There is no tricuspid valve stenosis. PULMONIC VALVE The pulmonic valve is not well visualized. Doppler and Color Flow revealed no pulmonic valvular regur gitation. There is no pulmonic valvular stenosis. GREAT VESSELS The aortic root is normal in size. The ascending aorta is normal in size. The IVC is normal in size a nd collapses >50% with inspiration. PERICARDIAL EFFUSION There is no evidence of significant pericardial effusion. Critical Notification Critical Value: No <Conclusion> The left ventricular systolic function is normal. The Ejection Fraction is 55-60%. There is normal LV segmental wall motion. Doppler and Color-flow revealed trace mitral regurgitation. There is no evidence of significant pericardial effusion. Signed by : Chris Crain, Electronically Approved : 10/09/2018 15:45:56
--- NOTE | 2018-10-10 01:20 | SSS ---
ADMIT DATE: 10/09/2018 HISTORY OF PRESENT ILLNESS: The patient is a 33-year-old female patient who came to the Emergency Room complaining of chest pain, mostly the right-side abdominal pain. Pains began around 2:00 p.m. She has just finished eating lunch and was about to get into the pool, describes as stabbing in nature. Pain was so intense that she was unable to take a deep breath, felt short of air in her central chest. When asked specifically about chest pain, I think it got blown way out of proportion. Denies any dizziness, diaphoresis, palpitation. [place] slightly nauseated. No recent dyspnea on exertion, chest pain with exertion. No recent fever or illness. She was basically investigated. Her EKG showed no evidence of acute changes. She was admitted and has 2 sets of cardiac enzymes that were negative and ruled out myocardial infarction. She did have hypokalemia and hypomagnesemia, which were replaced and was seen by the property technician. She has had an echocardiogram done, which basically showed that her left ventricular systolic function is normal, ejection fraction was 55-60%, abnormal left ventricular segmental wall motion. There is trace mitral regurgitation and no significant pericardial effusion. PAST MEDICAL HISTORY: Significant for hypertension, hyperlipidemia, osteoarthritis, anxiety and depression. PAST SURGICAL HISTORY: Significant for appendectomy, cholecystectomy, hysterectomy. FAMILY HISTORY: Positive for coronary artery disease. SOCIAL HISTORY: She lives with her family. She smokes a pack a day. Does not drink alcohol or use any recreational drugs. ALLERGIES: She is allergic to PENICILLIN. MEDICATIONS: She is currently on the following medication: Cetirizine 10 mg once a day, metoprolol succinate 50 mg once a day, lamotrigine for Lamictal 25 mg twice a day, citalopram hydrobromide 40 mg daily, trazodone 100 mg at bedtime, hydrochlorothiazide 25 mg once a day, ondansetron ODT 4 mg 4 times a day. PHYSICAL EXAMINATION: GENERAL: On arrival to the hospital, she looked well and was clearly in no apparent respiratory distress. No pallor, jaundice, cyanosis or thyromegaly. No jugular venous distention. No limb edema. VITAL SIGNS: Her heart rate was 69, blood pressure was 132/78, temperature was 98, respiratory rate was 20 and oxygen saturation was 97%. HEAD, EYES, EAR, NOSE AND THROAT: Normocephalic, atraumatic. NECK: Supple. HEART: Showed normal first and second heart sounds. No gallop or murmur. CHEST: Clear to auscultation. No crepitation or rhonchi. ABDOMEN: Distended, soft, nontender. No guarding or rigidity. No organomegaly. All hernial orifice intact. Bowel sounds normal. NEUROLOGIC: She is awake, alert, responding appropriately. All cranial nerves intact. EXTREMITIES: She moves extremities without difficulty. She ambulates without assistance or assistive devices. LABORATORY DATA: On admission showed a white cell count 12,000, hemoglobin 13, hematocrit 39, MCV 85 and platelet count 329,000. Her prothrombin time, INR and aPTT as well as D-dimer are all normal. Her chemistry showed a serum sodium 138, potassium 3.4, chloride 101, bicarbonate 29, anion gap of 8, BUN 14, creatinine 1.1, estimated GFR was 56 mL per minute. Her glucose 96, calcium was 9.8, magnesium was 1.7. Total bilirubin, AST, ALT, alkaline phosphatase were normal. CK was 328. Beta natriuretic peptide was 297. Troponin was less than 0.017. Her total protein was 7.2, albumin was 3.5. Her TSH was normal at 2.131. ASSESSMENT AND PLAN: The patient was admitted and has had 2 sets of cardiac enzymes that ruled out myocardial infarction. EKG was nondiagnostic and she was seen by the property technician and an echocardiogram was done which showed that she has normal left ventricular systolic function. Although I participated in the admission and diagnostic testing, she left against medical advice before I make it to see her. CHELY SAMUELS MD DR: СВЕТЛАНА/hadley JOB#: [id number] / [id number]
[2018-10-10 03:29] VITALS: BP 127/72
== END 2018-10-09 15:46 | disposition left against medical advice (07) | DRG 313 ==
LOC: ER 17:50 → 1 SOUTH 19:00
PROVIDERS: ADMIT Internal Medicine; ATTEND Internal Medicine
DX: R07.89 Other chest pain (principal); Z68.43 Body mass index [BMI] 50.0-59.9, adult; F32.9 Major depressive disorder, single episode, unspecified; F41.9 Anxiety disorder, unspecified; M19.90 Unspecified osteoarthritis, unspecified site; I10 Essential (primary) hypertension; F17.210 Nicotine dependence, cigarettes, uncomplicated; E78.00 Pure hypercholesterolemia, unspecified; E87.6 Hypokalemia; E83.42 Hypomagnesemia; E66.9 Obesity, unspecified; E78.5 Hyperlipidemia, unspecified; Z90.49 Acquired absence of other specified parts of digestive tract; Z90.710 Acquired absence of both cervix and uterus; Z82.49 Family history of ischemic heart disease and other diseases of the circulatory system; Z88.0 Allergy status to penicillin
CPT/HCPCS: 36415; 74022; 80048; 80061; 80076; 81001; 82150; 82550; 83690; 83735; 83880; 84443; 84484; 85025; 85379; 85610; 85730; 87040; 93005; 93306; 96361; 96365; 96372; 96375; J2060; J2270; J2405; J3475; J3490; J7120; 99285-25

== ENCOUNTER 2018-12-15 22:21 | Inpatient (IN) | payer OTHER ==
[~2018-12-15] VITALS: Ht 157.5 cm; Wt 128.9 kg
[~2018-12-15 22:21] MED LIST changes: +CETI10TA16 PO; +HYDR-2145 PO; +TRAZ-86 PO
[2018-12-15] MEDS ORDERED: ASPI81TA50 PO (22:40)
[2018-12-15] MEDS ORDERED: DIPH25CA58 PO (22:40)
[2018-12-15] MEDS ORDERED: IV NORMAL SALINE 1,000ML 1,000 ML IV ONE (22:45)
[2018-12-15] MEDS ORDERED: ONDANSETRON PF 4 MG/2 ML VIAL. IV ONE (22:45)
[2018-12-15] MEDS ORDERED: MORPHINE SULFATE 4 MG/ML DISP.SYRIN. IV ONE (22:45)
--- NOTE | 2018-12-15 23:42 | PHYS DOC ---
Past History Past Medical History: Depression, Hypertension Past Surgical History: Appendectomy, Cholecystectomy, Hysterectomy Smoking: Less than 1pk/day Alcohol Use: None Drug Use: None Adult General Chief Complaint Chief Complaint: ABDOMINAL PAIN HPI HPI Patient is a 33 yo f low abdo pain x two hours a/w bloody stool x 30 minutes tenesmus multiple small episodes of bloody stool [facility] sweaty, nausea no vomiting. no abx no travel no raw meat no other recent hx Review of Systems Review of Systems Constitutional: Denies fever or chills [] Eyes: Denies change in visual acuity, redness, or eye pain [] HENT: Denies nasal congestion or sore throat [] Musculoskeletal: Denies back pain or joint pain [] Integument: Denies rash or skin lesions [] All other systems were reviewed and found to be within normal limits, except as documented in this note. Current Medications Current Medications Current Medications Medications (Trade) Dose Ordered Sig/Harrison Start Time Stop Time Status Last Admin Dose Admin Morphine Sulfate (Morphine 4mg Syringe) 4 mg 1X ONCE 12/15/18 22:45 12/15/18 22:46 DC 12/15/18 23:22 4 MG Ondansetron HCl (Zofran) 4 mg 1X ONCE 12/15/18 22:45 12/15/18 22:46 DC 12/15/18 23:23 4 MG Sodium Chloride 1,000 ml @ 1,000 mls/hr 1X ONCE 12/15/18 22:45 12/15/18 23:44 12/15/18 23:22 1,000 MLS/HR Allergies Allergies Allergies Coded Allergies Type Severity Reaction Last Updated Verified Penicillins Allergy Severe Anaphylaxis 12/15/18 Yes latex Allergy Unknown 12/15/18 Yes Physical Exam Physical Exam Constitutional: Well developed, well nourished, no acute distress, non-toxic appearance. [] HENT: Normocephalic, atraumatic, bilateral external ears normal, oropharynx moist, no oral exudates, nose normal. [] Eyes: PERRLA, EOMI, conjunctiva normal, no discharge. [] Neck: Normal range of motion, no tenderness, supple, no stridor. [] Cardiovascular:Heart rate regular rhythm, no murmur [] Lungs & Thorax: Bilateral breath sounds clear to auscultation [] Abdomen: Bowel sounds normal, soft, ttp llq Skin: Warm, dry, no erythema, no rash. [] Back: No tenderness, no CVA tenderness. [] Extremities: No tenderness, no cyanosis, no clubbing, ROM intact, no edema. [] Neurologic: Alert and oriented X 3, normal motor function, normal sensory function, no focal deficits noted. [] Psychologic: Affect normal, judgement normal, mood normal. [] Current Patient Data Vital Signs s * Moderate Temperature (Fahrenheit): * 98.4 degrees F (97.6-99.5) Patient Temperature * 98.4 degrees F (97.5-99.5) Temperature Source * Oral Blood Pressure Systolic * 127 mm Hg (100-140) Blood Pressure Diastolic * 72 mm Hg (60-100) Blood Pressure Mean * 90 mm Hg Blood Pressure Location * Left Radial Artery Blood Pressure Source * Automatic Cuff Pulse Rate * 76 beats per minute (60-90) Pulse Assessment Method * Monitor Respiratory Rate * 20 breaths per minute (12-24) Oxygen Delivery Method * Room Air Bedside Pulse Oximetry * 98 % Treatment Prior to Arrival * No Complaint of Pain * Yes EKG EKG [] Radiology/Procedures Radiology/Procedures [] Impressions: FINDINGS: Heart is normal in size. No pericardial or pleural effusion. Clear lung bases. Liver, spleen, pancreas, adrenals and kidneys are within normal limits. No enlarged retroperitoneal or pelvic adenopathy. No free pelvic fluid or ascites. No bowel obstruction. Mild circumferential wall thickening is seen of the colon from the level of splenic flexure to rectum with mild pericolonic inflammatory changes. Urinary bladder demonstrates no radiopaque stone. No pneumoperitoneum. No suspicious bony lesion. IMPRESSION: Findings of long segment colitis from the level of splenic flexure to rectum. Electronically signed by: Carlos Borjas DO (12/16/2018 1:41 AM) [facility] Course & Med Decision Making Course & Med Decision Making Pertinent Labs and Imaging studies reviewed. (See chart for details) []prob colitis workup as such final plan: pt looks much better, feels better labs stable overall mild leukocytosis no significant infectoius risk factors offered admission for iv abx, pain control, she wants to go home she is aware to come back for any change or worsening symptoms or not improving as expected Chilson ulcers of pending stool culture to follow up with primary care within 2 days to check on that as well. Come back sooner for fever worsening pain or other symptoms follow-up with GI for no improvement or any recurrence Ольга Disclaimer Ольга Disclaimer This electronic medical record was generated, in whole or in part, using a voice recognition dictation system. Departure Departure: Impression: Primary Impression: Colitis Disposition: 01 HOME, SELF-CARE Condition: STABLE Referrals: BECCA BELLA DO (PCP) Scripts Prochlorperazine Maleate (Compazine) 10 Mg Tablet 1 TAB PO Q6HRS PRN for NAUSEA/VOMITING for 7 Days, #28 TAB 0 Refills Prov: SONALI TROTTER MD 12/16/18 Hydrocodone Bit/Acetaminophen (NORCO 5-325 TABLET) 1 Each Tablet 1-2 TAB PO Q4-6HRS PRN for PAIN, #15 TAB Prov: SONALI TROTTER MD 12/16/18 Metronidazole (FLAGYL) 500 Mg Tablet 1 TAB PO BID for colitis, #14 TAB Prov: SONALI TROTTER MD 12/16/18 Ciprofloxacin Hcl (CIPROFLOXACIN HCL) 500 Mg Tablet 1 TAB PO BID for colitis, #14 TAB Prov: SONALI TROTTER MD 12/16/18 SONALI TROTTER MD Dec 15, 2018 23:42
[2018-12-16 00:14] LABS: BASO # 0.1 x10^3/uL (0.0-0.2); BASO % 1 % (0-3); EOS # 0.5 x10^3/uL (0.0-0.7); EOS % 4 % (0-3); HEMATOCRIT 42.1 % (36.0-47.0); HEMOGLOBIN 14.3 g/dL (12.0-15.5); LYMPH # 3.9 x10^3/uL (1.0-4.8); LYMPH % 31 % (24-48); MEAN CORPUSCULAR HEMOGLOBIN 29 pg (25-35); MEAN CORPUSCULAR HGB CONC 34 g/dL (31-37); MEAN CORPUSCULAR VOLUME 85 fL (79-100); MONO # 0.9 x10^3/uL (0.0-1.1); MONO % 7 % (0-9); NEUT # 7.3 x10^3uL (1.8-7.7); NEUT % 58 % (31-73); PLATELET COUNT 325 x10^3/uL (140-400); RED BLOOD COUNT 4.95 x10^6/uL (3.50-5.40); RED CELL DISTRIBUTION WIDTH 13.3 % (11.5-14.5); WHITE BLOOD COUNT 12.7 x10^3/uL (4.0-11.0)
[2018-12-16 00:24] LABS: BACTERIA,URINE FEW /HPF (0-FEW); BILIRUBIN,URINE NEG (NEG); CLARITY,URINE HAZY; COLOR,URINE YELLOW; GLUCOSE,URINE NEG (NEG); NITRITE,URINE NEG (NEG); RBC,URINE 0 /HPF (0-2); SQUAMOUS EPITHELIAL CELL,UR MANY /LPF; UROBILINOGEN,URINE 0.2 mg/dL (0.2 mg/dL); WBC,URINE OCC /HPF (0-4)
[2018-12-16 00:33] LABS: ALBUMIN 3.8 g/dL (3.4-5.0); CALCIUM 9.4 mg/dL (8.5-10.1); CREATININE 0.8 mg/dL (0.6-1.0); GFR 81.6; TOTAL BILIRUBIN 0.3 mg/dL (0.2-1.0); TOTAL PROTEIN 7.5 g/dL (6.4-8.2)
[2018-12-16 00:34] LABS: POTASSIUM 3.9 mmol/L (3.5-5.1)
[2018-12-16] MEDS ORDERED: IOHEXOL 300 MG/ML 75 ML VIAL. IV ONE (01:00)
[2018-12-16] MEDS ORDERED: CONTRAST GIVEN MC PRN (01:15)
--- NOTE | 2018-12-16 01:44 | RAD ---
PQRS Compliance statement: One or more of the following individualized dose reduction techniques were utilized for this examination: 1. Automated exposure control. 2. Adjustment of the mA and/or kV according to patient size. 3. Use of iterative reconstruction technique. Indication:Lower rectal pain and bleeding. TECHNIQUE: CT abdomen and pelvis with IV contrast with multiplanar reformats. COMPARISON: None FINDINGS: Heart is normal in size. No pericardial or pleural effusion. Clear lung bases. Liver, spleen, pancreas, adrenals and kidneys are within normal limits. No enlarged retroperitoneal or pelvic adenopathy. No free pelvic fluid or ascites. No bowel obstruction. Mild circumferential wall thickening is seen of the colon from the level of splenic flexure to rectum with mild pericolonic inflammatory changes. Urinary bladder demonstrates no radiopaque stone. No pneumoperitoneum. No suspicious bony lesion. IMPRESSION: Findings of long segment colitis from the level of splenic flexure to rectum. Electronically signed by: Carlos Borjas DO (12/16/2018 1:41 AM) [facility]
[2018-12-16] MEDS ORDERED: PROC10TA57 PO (01:59)
[2018-12-16] MEDS ORDERED: METR500T PO (01:59)
[2018-12-16] MEDS ORDERED: CIPR500T PO (01:59)
[2018-12-16] MEDS ORDERED: HYDR-3165 PO (01:59)
[2018-12-16] MEDS ORDERED: CIPROFLOXACIN HCL 500 MG TABLET PO ONE (02:00)
[2018-12-16] MEDS ORDERED: metroNIDAZOLE 500 MG TABLET PO ONE (02:00)
[2018-12-16] MEDS ORDERED: CIPROFLOXACIN 400MG PREMIX 200 ML IV ONE (02:30)
[2018-12-16] MEDS: IV NORMAL SALINE 1,000ML 1,000 ML IV SCH ×2 (03:02→13:09)
[2018-12-16] MEDS: MORPHINE SULFATE 4 MG/ML DISP.SYRIN. IV PRN ×3 (03:04→13:33)
[2018-12-16 04:59] VITALS: BP 122/75
[2018-12-16 11:03] VITALS: BP 111/67
[2018-12-16 13:33] LABS: BASO # 0.1 x10^3/uL (0.0-0.2); BASO % 1 % (0-3); EOS # 0.4 x10^3/uL (0.0-0.7); EOS % 3 % (0-3); HEMATOCRIT 38.8 % (36.0-47.0); LYMPH # 3.1 x10^3/uL (1.0-4.8); LYMPH % 25 % (24-48); MEAN CORPUSCULAR HEMOGLOBIN 29 pg (25-35); MEAN CORPUSCULAR HGB CONC 34 g/dL (31-37); MEAN CORPUSCULAR VOLUME 85 fL (79-100); MONO % 8 % (0-9); NEUT # 8.1 x10^3uL (1.8-7.7); NEUT % 64 % (31-73); PLATELET COUNT 279 x10^3/uL (140-400); RED BLOOD COUNT 4.56 x10^6/uL (3.50-5.40); RED CELL DISTRIBUTION WIDTH 13.3 % (11.5-14.5); WHITE BLOOD COUNT 12.7 x10^3/uL (4.0-11.0)
[2018-12-16 13:40] LABS: CALCIUM 8.5 mg/dL (8.5-10.1); CREATININE 0.8 mg/dL (0.6-1.0); GFR 81.6; POTASSIUM 3.6 mmol/L (3.5-5.1)
[2018-12-16 15:11] VITALS: BP 117/73
--- NOTE | 2018-12-16 15:26 | SSS ---
ADMIT DATE: 12/16/2018 SHORT STAY HISTORY OF PRESENT ILLNESS: The patient is a 33-year-old female patient, who came to the Emergency Room complaining of recurrent bouts of diarrhea with the bloody stools associated with some nausea, but no vomiting. She has also severe cramping abdominal pain. She did even feel dizzy initially, but that has subsided. She denied any antibiotic recently. She has denied any travel outside of [facility]. She lives at [place] and uses city water. She has never had similar symptoms like this before. None of her family members have similar symptoms and there is no history of any inflammatory bowel disease in her parents or her sisters and brothers. She was investigated in the Emergency Room and was found to have a mild leukocytosis with a white cell count of 12,700. Hemoglobin and hematocrit were stable as well as her platelets. Her chemistry was also unremarkable. She has had a CT scan of the abdomen with IV contrast. It showed that the heart is normal in size, no pericardial or pleural effusion, and clear lung bases. Liver, spleen, pancreas, adrenal, and kidneys are within normal limits. No enlarged retroperitoneal or pelvic adenopathy. No free pelvic fluid or ascites. No bowel obstruction. Mild circumferential wall thickening is seen of the colon from the level of splenic flexure to the rectum with the pericolonic inflammatory changes. Urinary bladder demonstrates no radiopaque stones and no pneumoperitoneum. No suspicious bony lesion. The patient was admitted with the acute colitis and was started on IV fluid, IV pain medication, and antiemetic. She was started on Flagyl and metronidazole. PAST MEDICAL HISTORY: Significant for anxiety and hypertension. PAST SURGICAL HISTORY: Significant for appendectomy, cholecystectomy, and total abdominal hysterectomy without oophorectomy. ALLERGIES: She is allergic to PENICILLIN and LATEX. MEDICATIONS: She is currently on following medications: She is on diphenhydramine 25 mg at bedtime, cetirizine 10 mg daily, and metoprolol succinate 50 mg once a day. She is on aspirin 81 mg once a day, lamotrigine 25 mg twice a day, citalopram hydrobromide for Celexa 40 mg once a day, trazodone 100 mg at bedtime, and hydrochlorothiazide 25 mg once a day. FAMILY HISTORY: She has 2 brothers and 1 sister, all younger and healthy. Her father at age of 52 because of myocardial infarction. Mother is still alive at the age of 54 and apparently seemingly healthy. SOCIAL HISTORY: She is and has a son and daughter. She smokes a pack a day and does not drink alcohol or use any recreational drugs. 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 REVIEW OF SYSTEMS: The patient denied any blurring of vision, cataract, glaucoma, or macular degeneration. Denied any earache, tinnitus, or sensorineural deafness. Denied any nosebleeds, stuffy nose, or postnasal drip. Denied any sore throat, sore tongue, toothache, hoarseness of voice, or difficulty swallowing. Did complain of nausea, but no vomiting. Had a bloody diarrhea, approximately up to 15 times or more. Denied any dysuria, frequency, or hematuria. Denied any chest pain, shortness of breath, orthopnea, or paroxysmal nocturnal dyspnea. Denied any cough, phlegm, or hemoptysis. PHYSICAL EXAMINATION: GENERAL: On arrival to the Emergency Room, she looked well and was clearly in no apparent respiratory distress. No pallor, jaundice, or cyanosis, no lymphadenopathy, no thyromegaly, no jugular venous distention, and no limb edema. VITAL SIGNS: Her heart rate was 76, blood pressure was 138/81, temperature was 98.4, respiratory rate 20, and oxygen saturation was 98%. HEAD, EYES, EARS, NOSE, AND THROAT: Showed normocephalic and atraumatic. NECK: Supple. HEART: Showed normal first and second heart sounds and no gallop or murmur. CHEST: Clear to auscultation. No crepitation or rhonchi. ABDOMEN: Distended, soft, and nontender. No guarding or rigidity. No organomegaly. All hernial orifices are intact and bowel sounds normal. NEUROLOGIC: She was awake, alert, and responding appropriately. All her cranial nerves intact. EXTREMITIES: She moves extremities without difficulty and she ambulates without assistance or assistive devices. LABORATORY WORK: On admission showed a white cell count of 12,700, hemoglobin 14, hematocrit 42, MCV 85, and platelet count of 325,000. Her serum sodium was 140, potassium 3.9, chloride 100, bicarbonate 28, anion gap of 12, BUN 11, and creatinine 0.8. Estimated GFR was 81 mL per minute. Her glucose was 106 and calcium was 9.4. Total bilirubin, AST, ALT, and alkaline phosphatase were normal. Total protein was 7.5 and albumin was 3.8. Urinalysis was essentially unremarkable. ASSESSMENT AND PLAN: In summary, this is a 33-year-old female patient, who came to the Emergency Room with the recurrent bouts of diarrhea, likely infectious. She was started on IV fluid, IV Flagyl, and ciprofloxacin. We will send stool for culture and sensitivity and we will transfer her to [facility] to consult the Gastroenterology team as could possibly be either inflammatory bowel disease versus infectious colitis. CHELY SAMUELS MD DR: СВЕТЛАНА/hadley JOB#: [id number] / [id number]
[2018-12-16] MEDS ORDERED: CIPROFLOXACIN 400MG PREMIX 200 ML IV SCH (21:00)
== END 2018-12-16 15:38 | disposition short-term general hospital (02) | DRG 392 ==
LOC: ER 22:21 → UNDOADMIN 12-16 02:09 → 1 SOUTH 12-16 02:09
PROVIDERS: ADMIT Internal Medicine; ATTEND Internal Medicine
DX: A09 Infectious gastroenteritis and colitis, unspecified (principal); F17.210 Nicotine dependence, cigarettes, uncomplicated; I10 Essential (primary) hypertension; Z82.49 Family history of ischemic heart disease and other diseases of the circulatory system; Z90.49 Acquired absence of other specified parts of digestive tract; Z90.710 Acquired absence of both cervix and uterus; F32.9 Major depressive disorder, single episode, unspecified; F41.9 Anxiety disorder, unspecified; Z88.0 Allergy status to penicillin; Z91.040 Latex allergy status
CPT/HCPCS: 36415; 74177; 80048; 80053; 81001; 85025; 87045; J0744; J2270; J2405; J3490; Q9967; J7030

== ENCOUNTER 2018-12-29 21:48 | Emergency (ER) | payer OTHER ==
[~2018-12-29] VITALS: Ht 157.5 cm; Wt 128.0 kg
[~2018-12-29 21:48] MED LIST changes: +ASPI81TA50 PO; +CIPR500T PO; +DIPH25CA58 PO; +HYDR-3165 PO; +METR500T PO; +PROC10TA57 PO
[2018-12-29 21:57] VITALS: BP 122/67
[2018-12-29] MEDS ORDERED: DEXAMETHASONE 4 MG TABLET PO ONE (22:15)
[2018-12-29] MEDS ORDERED: HYDR-3165 PO (22:27)
[2018-12-29] MEDS ORDERED: PRED20TA PO (22:27)
[2018-12-29] MEDS ORDERED: HYDROcodone/APAP 5/325MG 1 TAB TABLET PO ONE (22:30)
[2018-12-29] MEDS ORDERED: GABA-586 PO (22:32)
--- NOTE | 2018-12-29 22:32 | PHYS DOC ---
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 Dillard is a 33yo F w/ PMH significant for colitis, HTN, and anxiety presents with left lower extremity pain. The patient was seen on Dec 16 for colitis and was admitted here then transferred to [facility]. She states she started developing crampy left lower leg pain during the admission that felt like she "rolled my ankle." The pain has been constant throughout the day but has progressively worsened. The pain transitioned to a burning sensation on the top of her foot with a sharp, shooting sensation radiating from the left foot, up through the posterior calf, and into the posterior aspect of the left knee 3-4 days ago. Denies recent trauma to low back or left extremity. No history of DVT, PE, or family history of clotting disorders. Reports mild chronic lower back pain. Tylenol, ibuprofen, and icy hot have not helped. Review of Systems Review of Systems Constitutional: Denies fever or chills Eyes: Denies redness or eye pain HENT: Denies nasal congestion or sore throat Respiratory: Denies cough or shortness of breath Cardiovascular: Denies chest pain or palpitations GI: Denies abdominal pain, nausea, or vomiting : Denies dysuria or hematuria Musculoskeletal: Reports low back pain and left lower extremity pain. Denies other joint pain. Integument: Denies rash or skin lesions Neurologic: Reports burning sensation on dorsum of left foot. Denies headache, focal weakness or other sensory changes. Complete systems were reviewed and found to be within normal limits, except as documented in this note. Current Medications Current Medications Current Medications Medications (Trade) Dose Ordered Sig/Harrison Start Time Stop Time Status Last Admin Dose Admin Dexamethasone (Decadron) 10 mg 1X ONCE 12/29/18 22:15 12/29/18 22:16 UNV Allergies Allergies Allergies Coded Allergies Type Severity Reaction Last Updated Verified Penicillins Allergy Severe Anaphylaxis 12/15/18 Yes latex Allergy Unknown 12/15/18 Yes Physical Exam Physical Exam Constitutional: Well developed, obese, no acute distress, non-toxic appearance HENT: Normocephalic, atraumatic, oropharynx moist Eyes: Conjunctiva normal, no discharge Neck: Normal range of motion, no tenderness, supple Cardiovascular: Heart rate normal, regular rhythm w/o gallops, rubs, or murmurs Lungs & Thorax: Bilateral breath sounds clear to auscultation, no wheezing Skin: Warm, dry, no erythema, no rash Back: No CVA tenderness, mild low back pain Extremities: ROM intact, no edema, left dorsal foot pain, left lateral ankle pain, no calf tenderness Neurologic: Alert and oriented X 3, normal motor function, normal sensory function, no focal deficits noted Psychologic: Affect normal, judgement normal Current Patient Data Vital Signs Vital Signs Date Time Temp Pulse Resp B/P (MAP) Pulse Ox O2 Delivery O2 Flow Rate FiO2 12/29/18 21:57 97.8 90 16 97 Room Air EKG EKG [] Radiology/Procedures Radiology/Procedures [] Course & Med Decision Making Course & Med Decision Making Ms. Dillard presented with HPI and physical exam concerning for left lower extremity neuropathic pain. Gabapentin and hydrocodone were prescribed for pain management until patient is able to be further evaluated by PM&R. Patient stable for discharge with outpatient follow-up with PCP. Discussed findings and plan with patient and family, who acknowledge understanding and agreement. Dragon Disclaimer Dragon Disclaimer This electronic medical record was generated, in whole or in part, using a voice recognition dictation system. Departure Departure: Impression: Primary Impression: Neuropathic pain Disposition: HOME, SELF-CARE Condition: STABLE Referrals: CHINA COX (PCP) Patient Instructions: Pain, Neuropathic Additional Instructions: Please call and follow up with Dr. Heraclio Garnica (Pain management) at [phone] Scripts Gabapentin (NEURONTIN ) 300 Mg Capsule 300 MG PO TID for NEUROGENIC PAIN, #60 CAP On Saturday12/30/18 take 300mg twice daily then increased on Saturday12/31/18 to 300mg three times daily Prov: GENIE JOHNSON DO 12/29/18 Hydrocodone Bit/Acetaminophen (NORCO 5-325 TABLET) 1 Each Tablet 0.5-1 TAB PO Q6HRS PRN for PAIN, #10 TAB Prov: GENIE JOHNSON DO 12/29/18 Prednisone (PREDNISONE) 20 Mg Tablet 2 TAB PO DAILY for Neuropathy, #8 TAB Start this prescription tomorrow, Saturday12/30/18 Prov: GENIE JOHNSON DO 12/29/18 GENIE JOHNSON DO Dec 29, 2018 22:32
[2018-12-29] MEDS ORDERED: GABAPENTIN 100 MG CAPSULE. PO ONE (22:45)
== END 2018-12-29 22:44 | disposition home or self-care (01) ==
LOC: ER 21:48
DX: G62.9 Polyneuropathy, unspecified (principal); M79.605 Pain in left leg; G89.29 Other chronic pain; M54.5 Low back pain; F41.9 Anxiety disorder, unspecified; F32.9 Major depressive disorder, single episode, unspecified; I10 Essential (primary) hypertension; F17.200 Nicotine dependence, unspecified, uncomplicated; Z90.49 Acquired absence of other specified parts of digestive tract; Z90.710 Acquired absence of both cervix and uterus; Z88.0 Allergy status to penicillin; Z91.040 Latex allergy status
CPT/HCPCS: 99284; J8540

== ENCOUNTER 2020-07-16 14:53 | Emergency (ER) | payer OTHER ==
[~2020-07-16] VITALS: Ht 157.5 cm; Wt 127.0 kg
[~2020-07-16 14:53] MED LIST changes: -CIPR500T PO; +CIPR500T2 PO; +GABA-586 PO; +PRED20TA PO; +TRAZ-125 PO; -TRAZ-86 PO
[2020-07-16 15:30] VITALS: BP 142/70
== END 2020-07-16 16:22 | disposition left against medical advice (07) ==
LOC: ER 14:53
DX: K59.00 Constipation, unspecified (principal); Z53.21 Procedure and treatment not carried out due to patient leaving prior to being seen by health care provider